=== PATIENT | female | born 1960 | race Caucasian/White ===

== ENCOUNTER 2019-03-07 10:45 | Outpatient (CLI) | payer OTHER ==
--- NOTE | 2019-03-07 11:10 | RAD ---
Exam: XR Ankle Rt 3 View STANDARD HISTORY: Pain bursa lateral right ankle. COMPARISON: None FINDINGS: There is subcutaneous soft tissue swelling seen at the lateral aspect of the right ankle at the level of the lateral malleolus. There are several tiny calcifications noted in this region probably dystrophic in origin, but further evaluation with MRI is recommended to ensure that this does not rep resent matrix within a soft tissue lesion. No acute fracture, dislocation, or other acute osseous abnormality is identified. IMPRESSION: Soft tissue swelling with calcifications at the level of the lateral malleolus right ankle. This may represent remote injury with dystrophic calcifications in this region, but MRI right ankle is recommended to ensure that this does not represent calcifications secondary to matrix within a soft t issue lesion. MRI right ankle with and without IV contrast is recommended.
== END 2019-03-07 10:46 | disposition home or self-care (01) ==
LOC: RAD-FRANK 10:45
PROVIDERS: ATTEND Nurse Practitioner Family
DX: M77.51 Other enthesopathy of right foot and ankle (principal); M79.89 Other specified soft tissue disorders

== ENCOUNTER 2019-06-11 09:06 | Outpatient (CLI) | payer OTHER ==
--- NOTE | 2019-06-11 09:19 | RAD ---
XR Chest Pa Lat STANDARD HISTORY: Cough COMPARISON: None FINDINGS: The heart size is normal. The lungs are well expanded with a infiltrate in the left upper l obe. No pneumothoraces or pleural effusions are seen IMPRESSION: Left upper lobe pneumonia
== END 2019-06-11 09:07 | disposition home or self-care (01) ==
LOC: RAD-FRANK 09:06
PROVIDERS: ATTEND Nurse Practitioner Family
DX: J20.9 Acute bronchitis, unspecified (principal); J18.1 Lobar pneumonia, unspecified organism
CPT/HCPCS: 71046

== ENCOUNTER 2020-06-01 08:46 | Outpatient (CLI) | payer OTHER ==
--- NOTE | 2020-06-01 08:57 | RAD ---
Chest 2 views HISTORY: Dyspnea. COMPARISON: 06/11/2019. FINDINGS: Cardiac silhouette and pulmonary vasculature are unremarkable. Mediastinum is midline. No lobar consolidation or evidence of pneumothorax. IMPRESSION : No abnormalities are demonstrated.
== END 2020-06-01 08:47 | disposition home or self-care (01) ==
LOC: RAD-FRANK 08:46
PROVIDERS: ATTEND Nurse Practitioner Family
DX: R06.02 Shortness of breath (principal)
CPT/HCPCS: 71046

== ENCOUNTER 2020-11-24 15:29 | Outpatient (CLI) | payer OTHER ==
--- NOTE | 2020-11-24 15:45 | RAD ---
XR Chest Pa Lat STANDARD History: Cough Comparison: Radiograph May 2020 Findings: Lungs are clear. No pneumothorax or effusion. Cardiac silhouette and mediastinal contours a re within normal limits. No acute osseous abnormality. Impression: No acute intrathoracic abnormality.
== END 2020-11-24 15:30 | disposition home or self-care (01) ==
LOC: RAD-FRANK 15:29
PROVIDERS: ATTEND Nurse Practitioner Family
DX: J32.9 Chronic sinusitis, unspecified (principal)
CPT/HCPCS: 71046

== ENCOUNTER 2021-10-25 09:44 | Outpatient (CLI) | payer OTHER | END 2021-10-25 09:45 | disposition home or self-care (01) | LOC: RAD-FRANK 09:44 | PROVIDERS: ATTEND Nurse Practitioner Family | DX: M47.22 Other spondylosis with radiculopathy, cervical region (principal) | CPT/HCPCS: 72040 ==

== ENCOUNTER 2023-07-02 11:51 | Outpatient (CLI) | payer OTHER | END 2023-07-02 11:52 | disposition home or self-care (01) | LOC: RAD-FRANK 11:51 | PROVIDERS: ATTEND Nurse Practitioner Family | DX: R10.9 Unspecified abdominal pain (principal); R93.5 Abnormal findings on diagnostic imaging of other abdominal regions, including retroperitoneum | CPT/HCPCS: 74018 ==

== ENCOUNTER 2024-10-23 11:24 | Outpatient (CLI) | payer OTHER | END 2024-10-23 11:25 | disposition home or self-care (01) | LOC: BICMAMMO 11:24 | PROVIDERS: ATTEND Nurse Practitioner Family | DX: Z12.31 Encounter for screening mammogram for malignant neoplasm of breast (principal); Z80.3 Family history of malignant neoplasm of breast; Z98.82 Breast implant status | CPT/HCPCS: 77063; 77067 ==